=== PATIENT | female | born 1990 | race Caucasian/White ===

== ENCOUNTER → 2021-09-21 | Outpatient (REF) | payer BC ==
[2021-09-21 11:56] LABS: BASO % 0.4 % (0.0-1.0); EOS # 0.1 10^3/uL (0.0-0.5); EOS % 2.6 % (0.0-3.0); HEMATOCRIT 40.8 % (36.0-47.0); HEMOGLOBIN 14.1 g/dl (12.0-15.5); LYMPH # 1.5 10^3/uL (1.5-5.0); MEAN CORPUSCULAR HEMOGLOBIN 31.5 pg (27.0-33.0); MEAN CORPUSCULAR HGB CONC 34.6 g/dl (32.0-36.5); MEAN CORPUSCULAR VOLUME 91.3 fl (80.0-96.0); MONO # 0.6 10^3/uL (0.0-0.8); MONO % 11.4 % (2.0-8.0); NEUTROPHILS # 2.7 10^3/uL (1.5-8.5); NEUTROPHILS % 55.2 % (36.0-66.0); PLATELET COUNT, AUTOMATED 208 10^3/uL (150-450); RED BLOOD COUNT 4.47 10^6/uL (4.00-5.40); WHITE BLOOD COUNT 4.9 10^3/uL (4.0-10.0)
[2021-09-21 12:29] LABS: ALBUMIN 3.8 GM/DL (3.2-5.2); ALT/SGPT 22 U/L (12-78); BILIRUBIN,TOTAL 0.6 MG/DL (0.2-1.0); BLOOD UREA NITROGEN 14 MG/DL (7-18); CALCIUM LEVEL 9.6 MG/DL (8.5-10.1); CARBON DIOXIDE LEVEL 26 MEQ/L (21-32); CHLORIDE LEVEL 108 MEQ/L (98-107); CHOLESTEROL LEVEL 182 MG/DL (<200); CHOLESTEROL RISK RATIO 2.044 (<5); CREATININE FOR GFR 0.75 MG/DL (0.55-1.30); FREE T4 0.87 NG/DL (0.76-1.46); GLOMERULAR FILTRATION RATE > 60.0 (>60); GLUCOSE, FASTING 91 MG/DL (70-100); HDL CHOLESTEROL 89 MG/DL (>40); LDL CHOLESTEROL 80 MG/DL (<100); NON-HDL-C 93 MG/DL; POTASSIUM SERUM 4.4 MEQ/L (3.5-5.1); SODIUM LEVEL 139 MEQ/L (136-145); TOTAL PROTEIN 6.6 GM/DL (6.4-8.2); TRIGLYCERIDES LEVEL 64 MG/DL (<150)
== END ==
LOC: M SFHCCLAY 07:46
PROVIDERS: ATTEND Nurse Practitioner Family
DX: G35 Multiple sclerosis (principal); Z13.29 Encounter for screening for other suspected endocrine disorder; Z13.220 Encounter for screening for lipoid disorders

== ENCOUNTER → 2022-12-22 | Outpatient (REF) | payer BC ==
[2022-12-22 12:17] LABS: BASO # 0.1 10^3/uL (0.0-0.2); BASO % 0.9 % (0.0-1.0); EOS # 0.2 10^3/uL (0.0-0.5); EOS % 2.8 % (0.0-3.0); HEMATOCRIT 43.5 % (36.0-47.0); HEMOGLOBIN 14.7 g/dl (12.0-15.5); LYMPH # 1.9 10^3/uL (1.5-5.0); LYMPH % 28.1 % (24.0-44.0); MEAN CORPUSCULAR HEMOGLOBIN 31.2 pg (27.0-33.0); MEAN CORPUSCULAR HGB CONC 33.8 g/dl (32.0-36.5); MEAN CORPUSCULAR VOLUME 92.4 fl (80.0-96.0); MONO # 0.6 10^3/uL (0.0-0.8); MONO % 9.1 % (2.0-8.0); NEUTROPHILS # 3.9 10^3/uL (1.5-8.5); NEUTROPHILS % 58.8 % (36.0-66.0); PLATELET COUNT, AUTOMATED 216 10^3/uL (150-450); RED BLOOD COUNT 4.71 10^6/uL (4.00-5.40); WHITE BLOOD COUNT 6.7 10^3/uL (4.0-10.0)
[2022-12-22 12:45] LABS: ALKALINE PHOSPHATASE 57 U/L (46-116); ALT/SGPT 14 U/L (7.0-40); AST/SGOT < 8 U/L (<34); BILIRUBIN,TOTAL 0.6 MG/DL (0.3-1.2); BLOOD UREA NITROGEN 11 MG/DL (9-23); CALCIUM LEVEL 8.9 MG/DL (8.5-10.1); CARBON DIOXIDE LEVEL 26 MMOL/L (20-31); CHLORIDE LEVEL 104 MMOL/L (98-107); CHOLESTEROL LEVEL 173 MG/DL (<200); CHOLESTEROL RISK RATIO 2.08 (<5); CREATININE FOR GFR 0.69 MG/DL (0.55-1.30); FREE T4 1.16 NG/DL (0.89-1.76); GLOMERULAR FILTRATION RATE > 60.0 (>60); GLUCOSE, FASTING 80 MG/DL (60-100); HDL CHOLESTEROL 82.8 MG/DL (>40); NON-HDL-C 90.2 MG/DL; SODIUM LEVEL 138 MMOL/L (136-145); THYROID STIMULATING HORMONE 1.953 uIU/ML (0.55-4.78); TOTAL 25(OH) VITAMIN D 81.2 NG/ML (20.0-100.0); TOTAL PROTEIN 6.9 G/DL (5.7-8.2); TRIGLYCERIDES LEVEL 86 MG/DL (<150)
== END ==
LOC: M SFHCCLAY 07:03
PROVIDERS: ATTEND Nurse Practitioner Family
DX: J30.9 Allergic rhinitis, unspecified (principal); E04.1 Nontoxic single thyroid nodule; K11.1 Hypertrophy of salivary gland; G35 Multiple sclerosis

== ENCOUNTER → 2023-09-07 | Outpatient (REF) | payer BC ==
[2023-09-07 17:30] LABS: HCG, SERUM QUANTITATIVE 57498.8 MIU/ML (<4.2)
[2023-09-07 18:11] LABS: HCG, SERUM QUALITATIVE POSITIVE (NEGATIVE)
== END ==
LOC: M SFHCCLAY 14:50
PROVIDERS: ATTEND Nurse Practitioner Family
DX: Z32.01 Encounter for pregnancy test, result positive (principal)

== ENCOUNTER → 2023-11-02 | Outpatient (REF) | payer BC | LOC: M PLALAB 10:18 | PROVIDERS: ATTEND Advanced Practice Midwife | DX: Z53.9 Procedure and treatment not carried out, unspecified reason (principal) ==

== ENCOUNTER → 2023-11-02 | Outpatient (CLI) | payer BC ==
[2023-11-02 13:12] LABS: HEMATOCRIT 38.2 % (36.0-47.0); HEMOGLOBIN 13.1 g/dl (12.0-15.5); MEAN CORPUSCULAR HEMOGLOBIN 31.3 pg (27.0-33.0); MEAN CORPUSCULAR HGB CONC 34.3 g/dl (32.0-36.5); MEAN CORPUSCULAR VOLUME 91.2 fl (80.0-96.0); PLATELET COUNT, AUTOMATED 227 10^3/uL (150-450); RED BLOOD COUNT 4.19 10^6/uL (4.00-5.40); WHITE BLOOD COUNT 6.8 10^3/uL (4.0-10.0)
[2023-11-02 13:47] LABS: HIV 1&2 SCREEN NEGATIVE (NEGATIVE)
[2023-11-02 13:56] LABS: HEPATITIS C VIRUS ABY INDEX < 0.02 INDEX (<0.8)
[2023-11-02 15:06] LABS: GC DNA AMPLIFICATION NEGATIVE (NEGATIVE)
== END ==
LOC: M PLALAB 10:34
PROVIDERS: ATTEND Advanced Practice Midwife
DX: O09.519 Supervision of elderly primigravida, unspecified trimester (principal); Z3A.00 Weeks of gestation of pregnancy not specified

== ENCOUNTER → 2023-11-29 | Outpatient (CLI) | payer BC | LOC: M WHC 14:21 | PROVIDERS: ATTEND Advanced Practice Midwife | DX: Z34.02 Encounter for supervision of normal first pregnancy, second trimester (principal); Z3A.18 18 weeks gestation of pregnancy ==

== ENCOUNTER → 2024-01-30 | Outpatient (CLI) | payer BC ==
[2024-01-30 14:30] LABS: HEMATOCRIT 37.3 % (36.0-47.0); HEMOGLOBIN 12.2 g/dl (12.0-15.5); MEAN CORPUSCULAR HEMOGLOBIN 30.5 pg (27.0-33.0); MEAN CORPUSCULAR HGB CONC 32.7 g/dl (32.0-36.5); MEAN CORPUSCULAR VOLUME 93.3 fl (80.0-96.0); PLATELET COUNT, AUTOMATED 223 10^3/uL (150-450); WHITE BLOOD COUNT 8.3 10^3/uL (4.0-10.0)
== END ==
LOC: M PLALAB 09:28
PROVIDERS: ATTEND Advanced Practice Midwife
DX: O99.352 Diseases of the nervous system complicating pregnancy, second trimester (principal)

== ENCOUNTER → 2024-04-03 | Outpatient (REF) | payer BC | LOC: M SFHCWAGY 16:43 | PROVIDERS: ATTEND Nurse Practitioner Family | DX: Z36.89 Encounter for other specified antenatal screening (principal); Z3A.36 36 weeks gestation of pregnancy ==

== ENCOUNTER → 2024-04-06 | Outpatient (CLI) | payer BC | LOC: M WHC 12:44 | PROVIDERS: ATTEND Nurse Practitioner Family | DX: O09.523 Supervision of elderly multigravida, third trimester (principal); Z3A.36 36 weeks gestation of pregnancy ==

== ENCOUNTER 2024-05-04 15:19 | Inpatient (IN) | payer BC ==
[~2024-05-04] VITALS: Ht 177.8 cm; Wt 121.7 kg
[2024-05-04] MEDS ORDERED: ASPI81CH33 PO (15:37)
[2024-05-04] MEDS ORDERED: PRENTAB9 PO (15:37)
[2024-05-04] MEDS ORDERED: HOME MED LIST COMPLETE! XX SCH (15:40)
[2024-05-04 16:15] VITALS: BP 134/85
[2024-05-04] MEDS ORDERED: OXYTOCIN DRIP 30 UNITS in IV 1 EA IV PRN (16:30)
[2024-05-04] MEDS ORDERED: CARBOPROST TROMETHAMINE 250 MCG/ML AMP IM PRN (16:30)
[2024-05-04] MEDS ORDERED: LIDOCAINE 1% MDV 20ML VIAL INFIL PRN (16:30)
[2024-05-04] MEDS ORDERED: TRANEXAMIC ACID INJection 1,000 MG in NS 100 ML IV PRN (16:30)
[2024-05-04] MEDS ORDERED: OXYTOCIN INJ 10UNITS/ML 1ML VIAL IM PRN (16:30)
[2024-05-04 17:01] VITALS: BP 124/62; O2SAT 100
[2024-05-04] MEDS: miSOPROStol 50MCG 1/2 TABLET PO SCH (17:02)
[2024-05-04 18:08] VITALS: BP 122/74
[2024-05-04 18:47] LABS: HEPATITIS C VIRUS ABY INDEX < 0.02 INDEX (<0.8)
[2024-05-04 19:19] VITALS: BP 126/72
[2024-05-04 19:48] LABS: HEMATOCRIT 40.9 % (36.0-47.0); HEMOGLOBIN 13.6 g/dl (12.0-15.5); MEAN CORPUSCULAR HEMOGLOBIN 29.8 pg (27.0-33.0); MEAN CORPUSCULAR HGB CONC 33.3 g/dl (32.0-36.5); MEAN CORPUSCULAR VOLUME 89.7 fl (80.0-96.0); PLATELET COUNT, AUTOMATED 247 10^3/uL (150-450); RED BLOOD COUNT 4.56 10^6/uL (4.00-5.40); WHITE BLOOD COUNT 8.1 10^3/uL (4.0-10.0)
[2024-05-04 20:55] VITALS: BP 137/75
[2024-05-04 21:22] VITALS: BP 137/75
[2024-05-05] VITALS (52 sets, daily range): BP systolic 98–158; BP diastolic 53–94
[2024-05-05] MEDS: LR 1,000 ML IV SCH (02:10)
[2024-05-05] MEDS: OXYTOCIN DRIP 30 UNITS in IV 1 EA IV SCH ×2 (02:11→23:35)
[2024-05-05] MEDS: CALCIUM CARBONATE 500 MG CHEW U/D PO PRN (03:48)
[2024-05-05] MEDS ORDERED: ePHEDrine SULFATE 25 MG/5 ML(5MG/ML) SYRINGE IVP PRN (11:55)
[2024-05-05] MEDS ORDERED: diphenhydrAMINE 50MG/ML VIAL IV PRN (11:55)
[2024-05-05] MEDS ORDERED: NALOXONE INJ 0.4MG/1ML VIAL IV PRN (11:55)
[2024-05-05] MEDS ORDERED: ONDANSETRON 4MG 2ML VIAL IV PRN (11:55)
[2024-05-05] MEDS ORDERED: LR 500 ML IV PRN (11:55)
[2024-05-05] MEDS ORDERED: EPIDURAL/PCA KEYS XX PRN (11:55)
[2024-05-05] MEDS: FENTANYL/ROPIVACAINE/NACL BAG 100 ML EPIDURAL SCH (12:57)
[2024-05-05] MEDS: METHYLERGONOVINE MALEATE 0.2MG/ML 1ML VIAL IM PRN (22:46)
[2024-05-05] MEDS: AMPICILLIN SOD/SULBACTAM SOD 3 GM in SODIUM CHLORIDE 0.9% 100ML ADD 100 ML IV ONE (22:51)
[2024-05-05] MEDS ORDERED: METHYLERGONOVINE MALEATE 0.2 MG TAB PO PRN (23:35)
[2024-05-05] MEDS ORDERED: RHOGAM 300MCG (1500IU) INJ IM SCH (23:35)
[2024-05-05] MEDS ORDERED: ANUSOL HC CREAM 30GM TOP PRN (23:35)
[2024-05-05] MEDS ORDERED: MOM 30ML SUSPENSION UDC PO PRN (23:35)
[2024-05-05] MEDS ORDERED: ACETAMINOPHEN 325 MG TAB PO PRN (23:35)
[2024-05-05] MEDS ORDERED: CALCIUM CARBONATE 500 MG CHEW U/D PO PRN (23:35)
[2024-05-05] MEDS ORDERED: IBUPROFEN 600MG TAB PO PRN (23:35)
[2024-05-06 01:30] VITALS: BP 134/69; O2SAT 96
[2024-05-06] MEDS: DIBUCAINE 1% OINTMENT 30GM TOP PRN (01:55)
[2024-05-06] MEDS: IBUPROFEN 800 MG TAB PO PRN (01:59)
[2024-05-06 05:47] VITALS: BP 119/53; O2SAT 97
[2024-05-06] MEDS: PRENATAL VITAMINS CHEWABLE TABLET PO SCH (09:28)
[2024-05-06] MEDS: ACETAMINOPHEN 500 MG TAB PO PRN (09:28)
[2024-05-06] MEDS: CEPACOL LOZENGE PO PRN (13:22)
[2024-05-07 05:48] VITALS: BP 109/59; O2SAT 99
[2024-05-07] MEDS ORDERED: IBUP-1022 PO (07:52)
[2024-05-07] MEDS: DOCUSATE SODIUM 100MG CAPSULE PO PRN (08:20)
[2024-05-07] MEDS ORDERED: MEASLES,MUMPS,RUBELLA VACCINE INJ (MMR-II) SC.IMMUN ONE (09:00)
== END 2024-05-07 13:30 | disposition home or self-care (01) | DRG 541 ==
LOC: M LDI 15:19 → M OBS 05-06 01:19
PROVIDERS: ADMIT Advanced Practice Midwife; ATTEND Obstetrics & Gynecology
PROC: 3E0P7GC Introduction of Other Therapeutic Substance into Female Reproductive, Via Natural or Artificial Opening (ICD-10-PCS; 2024-05-04)
PROC: 10E0XZZ Delivery of Products of Conception, External Approach (ICD-10-PCS; principal; 2024-05-05)
PROC: 0HQ9XZZ Repair Perineum Skin, External Approach (ICD-10-PCS; 2024-05-05)
PROC: 0UQMXZZ Repair Vulva, External Approach (ICD-10-PCS; 2024-05-05)
PROC: 10D17Z9 Manual Extraction of Products of Conception, Retained, Via Natural or Artificial Opening (ICD-10-PCS; 2024-05-05)
DX: O48.0 Post-term pregnancy (principal); O70.0 First degree perineal laceration during delivery; Z3A.40 40 weeks gestation of pregnancy; Z79.82 Long term (current) use of aspirin; O73.0 Retained placenta without hemorrhage; Z37.0 Single live birth; O71.82 Other specified trauma to perineum and vulva

== ENCOUNTER → 2024-06-14 | Outpatient (REF) | payer BC ==
[~2024-06-14] MED LIST: ASPI81CH33 PO; IBUP-1022 PO; PRENTAB9 PO
== END ==
LOC: M SFHCCLAY 16:36
PROVIDERS: ATTEND Nurse Practitioner Family
DX: R39.15 Urgency of urination (principal)

== ENCOUNTER → 2024-11-22 | Outpatient (REF) | payer BC ==
[2024-11-25 00:52] LABS: HPV APTIMA Not Detected (Not Detected)
== END ==
LOC: M PLALAB 10:34
PROVIDERS: ATTEND Obstetrics & Gynecology
DX: Z12.4 Encounter for screening for malignant neoplasm of cervix (principal)
CPT/HCPCS: 87624; G0123

== ENCOUNTER → 2024-12-05 | Outpatient (CLI) | payer BC ==
[2024-12-05 13:19] LABS: ALT/SGPT 21 U/L (7.0-40); AST/SGOT 16 U/L (<34); CALCIUM LEVEL 8.9 MG/DL (8.5-10.1); CARBON DIOXIDE LEVEL 26 MMOL/L (20-31); CHLORIDE LEVEL 105 MMOL/L (98-107); CHOLESTEROL LEVEL 178 MG/DL (<200); CHOLESTEROL RISK RATIO 2.67 (<5); CREATININE FOR GFR 0.70 MG/DL (0.55-1.30); GLOMERULAR FILTRATION RATE > 90.0 (>60); LDL CHOLESTEROL 88.5 MG/DL (<100); NON-HDL-C 111.5 MG/DL; POTASSIUM SERUM 4.3 MMOL/L (3.5-5.1); SODIUM LEVEL 142 MMOL/L (136-145); TRIGLYCERIDES LEVEL 115 MG/DL (<150)
[2024-12-05 13:21] LABS: FREE T4 1.13 NG/DL (0.89-1.76)
[2024-12-05 13:48] LABS: ESTIMATED AVERAGE GLUCOSE 103.0 MG/DL (60-110)
== END ==
LOC: M PLALAB 10:32
PROVIDERS: ATTEND Nurse Practitioner Family
DX: Z00.00 Encounter for general adult medical examination without abnormal findings (principal); E04.1 Nontoxic single thyroid nodule; J30.9 Allergic rhinitis, unspecified; K11.1 Hypertrophy of salivary gland; G35 Multiple sclerosis

== ENCOUNTER → 2025-01-29 | Outpatient (CLI) | payer BC ==
[~2025-01-29] MED LIST changes: -IBUP-1022 PO; +IBUP600T42 PO
== END ==
LOC: M RAD 15:09
PROVIDERS: ATTEND Nurse Practitioner Family
DX: E04.1 Nontoxic single thyroid nodule (principal)